=== PATIENT | female | born 1965 | race Caucasian/White ===

== ENCOUNTER 2018-04-06 05:23 | Emergency (ER) | payer MEDICARE ==
[2018-04-06 05:33] VITALS: BP 142/71
[2018-04-06 06:08] LABS: ABSOLUTE LYMPHOCYTES (AUTO) 1.1 10^3/uL (0.5-4.7); ABSOLUTE MONOCYTES (AUTO) 0.4 10^3/uL (0.1-1.4); ABSOLUTE NEUT (AUTO) 4.7 10^3/uL (1.7-8.2); BASOPHILS % (AUTO) 0.8 % (0-2); EOSINOPHILS % (AUTO) 0.3 % (0-6); HEMATOCRIT 34.4 % (36.0-47.0); HEMOGLOBIN 11.7 g/dL (12.0-15.5); LYMPHOCYTES % (AUTO) 17.4 % (13-45); MEAN CORPUSCULAR HEMOGLOBIN 29.4 pg (27.0-33.4); MEAN CORPUSCULAR VOLUME 86 fl (80-97); MONOCYTES % (AUTO) 6.9 % (3-13); PLATELET COUNT 185 10^3/uL (150-450); RED BLOOD COUNT 3.98 10^6/uL (3.72-5.28); RED CELL DISTRIBUTION WIDTH 13.7 % (11.5-14.0); SEGMENTED NEUTROPHILS % (AUTO) 74.6 % (42-78); TOTAL CELLS COUNTED % (AUTO) 100 %; WHITE BLOOD COUNT 6.3 10^3/uL (4.0-10.5)
[2018-04-06 06:36] LABS: ALANINE AMINOTRANSFERASE 44 U/L (9-52); ALBUMIN 4.4 g/dL (3.5-5.0); ALKALINE PHOSPHATASE 151 U/L (38-126); ANION GAP 16 (5-19); ASPARTATE AMINO TRANSFERASE 32 U/L (14-36); BILIRUBIN,DIRECT 0.4 mg/dL (0.0-0.4); BILIRUBIN,TOTAL 0.6 mg/dL (0.2-1.3); BLOOD UREA NITROGEN 16 mg/dL (7-20); CALCIUM 9.4 mg/dL (8.4-10.2); CARBON DIOXIDE 18 mmol/L (22-30); CHLORIDE 112 mmol/L (98-107); GLUCOSE 160 mg/dL (75-110); POTASSIUM 4.2 mmol/L (3.6-5.0); SODIUM 145.5 mmol/L (137-145); TOTAL PROTEIN 7.7 g/dL (6.3-8.2)
[2018-04-06] MEDS ORDERED: LIDOCAINE 1% INJ-PF (10 MG/ML) 30 ML SDV NEB ONE ×2 (07:09→09:27)
--- NOTE | 2018-04-06 08:06 | RADIOLOGY REPORT (SQ) ---
EXAM DESCRIPTION: CHEST SINGLE VIEW COMPLETED DATE/TIME: 04/06/2018 6:43 am REASON FOR STUDY: cough COMPARISON: None. EXAM PARAMETERS: NUMBER OF VIEWS: One view. TECHNIQUE: Single frontal radiographic view of the chest acquired. RADIATION DOSE: NA LIMITATIONS: None. FINDINGS: LUNGS AND PLEURA: No opacities, masses or pneumothorax. No pleural effusion. MEDIASTINUM AND HILAR STRUCTURES: No masses. Contour normal. HEART AND VASCULAR STRUCTURES: Mild cardiomegaly. Normal vasculature. BONES: No acute findings. HARDWARE: None in the chest. OTHER: No other significant finding. IMPRESSION: Mild cardiomegaly without radiographic evidence of an acute cardiopulmonary process. TECHNICAL DOCUMENTATION: JOB ID: [id number] [employer]- All Rights Reserved Reading location - IP/workstation name: [email or web address]
[2018-04-06] MEDS ORDERED: BENZONATATE 100 MG CAPSULE PO ONE ×2 (08:49→09:14)
[2018-04-06] MEDS ORDERED: ALBUTEROL SULFATE HFA (90 MCG/PUFF) 8 GM MDI (1 MDI/ER DISP) IH ONE (09:14)
--- NOTE | 2018-04-06 09:23 | ER Document Report ---
ED General - General Chief Complaint: Cough Stated Complaint: COUGHING,TROUBLE BREATHING Time Seen by Provider: 04/06/18 06:53 - HPI Patient complains to provider of: Cough shortness of breath Notes: Patient coming in for cough staying shortness of breath ongoing for approximately 7 days. Patient has a history of renal transplant recently moved to the area approximately 6 months ago and has herself in a primary care physician. Renal transplant was performed in 2010. Patient is wearing CPAP although coughing throughout the night. States no fevers no chills no nausea vomiting the production of the cough. No recent antibiotics. Patient resting comfortably upon my evaluation of the dry cough in the room. - Related Data Allergies/Adverse Reactions: clopidogrel [From Plavix] Allergy (Verified 04/06/18 05:27) ondansetron [From Zofran] Allergy (Verified 04/06/18 05:27) Penicillins Allergy (Verified 04/06/18 05:27) Past Medical History - Social History Smoking Status: Never Smoker Chew tobacco use (# tins/day): No Frequency of alcohol use: None Drug Abuse: None Family History: Reviewed & Not Pertinent Patient has suicidal ideation: No Patient has homicidal ideation: No - Past Medical History Cardiac Medical History: Reports: Hx Heart Attack Renal/ Medical History: Denies: Hx Peritoneal Dialysis - unused fistula LUE Past Surgical History: Reports: Hx Cardiac Catheterization - stent x13, Hx Vascular Surgery - HD fistula LUE, kidney transplant Review of Systems - Review of Systems Constitutional: No symptoms reported EENT: No symptoms reported Cardiovascular: No symptoms reported Respiratory: Cough Gastrointestinal: No symptoms reported Genitourinary: No symptoms reported Female Genitourinary: No symptoms reported Musculoskeletal: No symptoms reported Skin: No symptoms reported Hematologic/Lymphatic: No symptoms reported Neurological/Psychological: No symptoms reported -: Yes All other systems reviewed and negative Physical Exam - Vital signs Vitals: Temp Pulse Resp BP Pulse Ox 98.7 F 80 20 142/71 H 97 04/06/18 05:27 04/06/18 05:27 04/06/18 05:27 04/06/18 05:27 04/06/18 05:27 Interpretation: Normal - General General appearance: Appears well, Alert - HEENT Head: Normocephalic, Atraumatic Eyes: Normal Pupils: PERRL - Respiratory Respiratory status: No respiratory distress Chest status: Nontender Breath sounds: Nonproductive cough Chest palpation: Normal - Cardiovascular Rhythm: Regular Heart sounds: Normal auscultation Murmur: No - Abdominal Inspection: Normal Distension: No distension Bowel sounds: Normal Tenderness: Nontender Organomegaly: No organomegaly - Back Back: Normal, Nontender - Extremities General upper extremity: Normal inspection, Nontender, Normal color, Normal ROM , Normal temperature General lower extremity: Normal inspection, Nontender, Normal color, Normal ROM , Normal temperature, Normal weight bearing. No: Adryan's sign - Neurological Neuro grossly intact: Yes Cognition: Normal Orientation: AAOx4 Rives Coma Scale Eye Opening: Spontaneous Rives Coma Scale Verbal: Oriented Rives Coma Scale Motor: Obeys Commands Rives Coma Scale Total: 15 Speech: Normal Motor strength normal: LUE, RUE, LLE, RLE Sensory: Normal - Psychological Associated symptoms: Normal affect, Normal mood - Skin Skin Temperature: Warm Skin Moisture: Dry Skin Color: Normal Course - Re-evaluation Re-evalutation: 04/06/18 14:27 The reviewed patient's laboratory studies with her states renal function is at baseline. Bicarb more likely lower because of the patient's renal transplant. Chest x-ray is negative for any acute process. Some relief of coughing with lidocaine. Otherwise lungs clear no signs of CHF no signs of underlying reactive airway disease no signs of infectious process neurologically patient has a viral URI. Did explain to the patient to use Tessalon Perles honey and possibilities and cough drops and [id number] medication. Status patient is afebrile and I feel that the patient will need any antibiotic coverage. Patient will be discharged home to follow-up with her primary care physician patient is return immediately if any of her symptoms change. - Vital Signs Vital signs: Temp Pulse Resp BP Pulse Ox 98.7 F 80 20 142/71 H 97 04/06/18 05:27 04/06/18 05:27 04/06/18 05:27 04/06/18 05:27 04/06/18 05:27 - Laboratory Result Diagrams: 04/06/18 05:55 04/06/18 05:55 Laboratory results interpreted by me: 04/06/18 04/06/18 05:55 05:55 Hgb 11.7 L Hct 34.4 L Sodium 145.5 H Chloride 112 H Carbon Dioxide 18 L Creatinine 1.33 H Est GFR ( Amer) 50 L Est GFR (Non-Af Amer) 42 L Glucose 160 H Alkaline Phosphatase 151 H Discharge - Discharge Clinical Impression: Viral URI with cough Condition: Good Disposition: HOME, SELF-CARE Instructions: Upper Respiratory Illness ([facility]) Additional Instructions: At this time and laboratory studies not show any critical pathology. Unfortunately there is not to be new medications available for cough. I recommend natural honey Her favorite drink throughout the day to help out with cough. I would also recommend using the albuterol inhaler to be given here 2 puffs every 4 hours as needed for shortness of breath and cough. He can try the Tessalon Perles as prescribed. 1 tablet every 8 hours Also prescribed to use a neb was machine. I would recommend using one treatment and still 2 mL's of the lidocaine given an runny nebulizer he can perform this once every 4 hours to have a cough. Return to the ER symptoms worsen follow-up with your primary care physician. Prescriptions: Benzonatate [Tessalon Perle 100 mg Capsule] 100 mg PO Q8HP PRN #30 cap PRN Reason: Nebulizer [Nebulizer Machine] 1 each MC ASDIR PRN #1 kit PRN Reason: Forms: Return to Work
== END 2018-04-06 09:52 | disposition home or self-care (01) ==
LOC: ER 05:23
DX: J06.9 Acute upper respiratory infection, unspecified (principal); R06.00 Dyspnea, unspecified; Z88.0 Allergy status to penicillin; I25.2 Old myocardial infarction
CPT/HCPCS: 94640; 99284; 36415; 85025; 80053; 71045; A9270; J3490 ×2

== ENCOUNTER → 2018-07-14 | Outpatient (CLI) | payer MEDICARE ==
[2018-07-14 13:09] LABS: ABSOLUTE BASOPHILS # (AUTO) 0.1 10^3/uL (0.0-0.2); ABSOLUTE EOSINOPHILS # (AUTO) 0.1 10^3/uL (0.0-0.6); ABSOLUTE LYMPHOCYTES (AUTO) 1.5 10^3/uL (0.5-4.7); ABSOLUTE MONOCYTES (AUTO) 0.7 10^3/uL (0.1-1.4); ABSOLUTE NEUT (AUTO) 3.3 10^3/uL (1.7-8.2); EOSINOPHILS % (AUTO) 1.5 % (0-6); HEMATOCRIT 33.3 % (36.0-47.0); HEMOGLOBIN 11.5 g/dL (12.0-15.5); LYMPHOCYTES % (AUTO) 26.7 % (13-45); MEAN CORPUSCULAR HEMOGLOBIN 30.1 pg (27.0-33.4); MEAN CORPUSCULAR HGB CONC 34.6 g/dL (32.0-36.0); MEAN CORPUSCULAR VOLUME 87 fl (80-97); MONOCYTES % (AUTO) 12.3 % (3-13); PLATELET COUNT 203 10^3/uL (150-450); RED BLOOD COUNT 3.83 10^6/uL (3.72-5.28); RED CELL DISTRIBUTION WIDTH 13.9 % (11.5-14.0); SEGMENTED NEUTROPHILS % (AUTO) 58.5 % (42-78); TOTAL CELLS COUNTED % (AUTO) 100 %; WHITE BLOOD COUNT 5.7 10^3/uL (4.0-10.5)
[2018-07-14 13:13] LABS: APPEARANCE,URINE CLOUDY; BILIRUBIN,URINE NEGATIVE (NEGATIVE); GLUCOSE, URINE NEGATIVE (NEGATIVE); KETONES,URINE NEGATIVE (NEGATIVE); LEUKOCYTE ESTERASE,URINE MODERATE (NEGATIVE); NITRITE,URINE NEGATIVE (NEGATIVE); PROTEIN,URINE 100 mg/dL (NEGATIVE); URINE SPECIFIC GRAVITY 1.012; UROBILINOGEN,URINE NEGATIVE mg/dL (<2.0)
[2018-07-14 13:14] LABS: COLOR,URINE YELLOW
[2018-07-14 13:31] LABS: ALBUMIN 4.2 g/dL (3.5-5.0); ANION GAP 14 (5-19); BLOOD UREA NITROGEN 31 mg/dL (7-20); CALCIUM 9.7 mg/dL (8.4-10.2); CARBON DIOXIDE 20 mmol/L (22-30); CHLORIDE 111 mmol/L (98-107); GLUCOSE 132 mg/dL (75-110); PHOSPHORUS 4.7 mg/dL (2.5-4.5); POTASSIUM 4.6 mmol/L (3.6-5.0); SODIUM 145.1 mmol/L (137-145)
[2018-07-14 13:44] LABS: UR PRO/CREAT RATIO RESULT 2.8 mg/mg (0.0-0.2); URINE CREATININE 55.3 mg/dL (15-278); URINE PROTEIN 157.6 mg/dL (<12)
== END ==
LOC: OD 12:28
PROVIDERS: ATTEND Internal Medicine Nephrology
DX: E11.22 Type 2 diabetes mellitus with diabetic chronic kidney disease (principal); N18.3 Chronic kidney disease, stage 3 (moderate); Q87.81 Alport syndrome
CPT/HCPCS: 36415; 80048; 80158; 81001; 82040; 82306; 82570; 83970; 84100; 84156; 85025

== ENCOUNTER → 2018-09-11 | Outpatient (CLI) | payer MEDICARE ==
[2018-09-11 13:04] LABS: ABSOLUTE BASOPHILS # (AUTO) 0.1 10^3/uL (0.0-0.2); ABSOLUTE EOSINOPHILS # (AUTO) 0.1 10^3/uL (0.0-0.6); ABSOLUTE LYMPHOCYTES (AUTO) 1.6 10^3/uL (0.5-4.7); ABSOLUTE MONOCYTES (AUTO) 0.8 10^3/uL (0.1-1.4); ABSOLUTE NEUT (AUTO) 4.3 10^3/uL (1.7-8.2); BASOPHILS % (AUTO) 0.8 % (0-2); EOSINOPHILS % (AUTO) 1.5 % (0-6); HEMATOCRIT 33.9 % (36.0-47.0); HEMOGLOBIN 11.7 g/dL (12.0-15.5); LYMPHOCYTES % (AUTO) 23.4 % (13-45); MEAN CORPUSCULAR HEMOGLOBIN 30.4 pg (27.0-33.4); MEAN CORPUSCULAR HGB CONC 34.4 g/dL (32.0-36.0); MEAN CORPUSCULAR VOLUME 88 fl (80-97); MONOCYTES % (AUTO) 11.7 % (3-13); PLATELET COUNT 214 10^3/uL (150-450); RED BLOOD COUNT 3.84 10^6/uL (3.72-5.28); SEGMENTED NEUTROPHILS % (AUTO) 62.6 % (42-78); TOTAL CELLS COUNTED % (AUTO) 100 %; WHITE BLOOD COUNT 6.9 10^3/uL (4.0-10.5)
[2018-09-11 13:12] LABS: APPEARANCE,URINE CLEAR; BILIRUBIN,URINE NEGATIVE (NEGATIVE); COLOR,URINE YELLOW; GLUCOSE, URINE NEGATIVE (NEGATIVE); KETONES,URINE NEGATIVE (NEGATIVE); LEUKOCYTE ESTERASE,URINE NEGATIVE (NEGATIVE); NITRITE,URINE NEGATIVE (NEGATIVE); PROTEIN,URINE >=500 mg/dL (NEGATIVE); URINE SPECIFIC GRAVITY 1.011; UROBILINOGEN,URINE NEGATIVE mg/dL (<2.0)
[2018-09-11 13:24] LABS: ANION GAP 10 (5-19); BLOOD UREA NITROGEN 32 mg/dL (7-20); CALCIUM 9.9 mg/dL (8.4-10.2); CARBON DIOXIDE 20 mmol/L (22-30); CHLORIDE 112 mmol/L (98-107); GLUCOSE 151 mg/dL (75-110); PHOSPHORUS 4.9 mg/dL (2.5-4.5); POTASSIUM 4.7 mmol/L (3.6-5.0); SODIUM 141.9 mmol/L (137-145)
[2018-09-11 13:33] LABS: URINE CREATININE 58.6 mg/dL (15-278)
[2018-09-11 13:51] LABS: UR PRO/CREAT RATIO RESULT 4.3 mg/mg (0.0-0.2); URINE PROTEIN 251.2 mg/dL (<12)
== END ==
LOC: OD 12:31
PROVIDERS: ATTEND Internal Medicine Nephrology
DX: N17.9 Acute kidney failure, unspecified (principal); E11.9 Type 2 diabetes mellitus without complications; R80.9 Proteinuria, unspecified
CPT/HCPCS: 36415; 80048; 81001; 82306; 82570; 83970; 84100; 84156; 85025

== ENCOUNTER 2018-09-23 17:39 | Emergency (ER) | payer MEDICARE ==
--- NOTE | 2018-09-23 19:09 | ER Document Report ---
ED Medical Screen (RME) - General Chief Complaint: Chest Pain Stated Complaint: CHEST PAIN Time Seen by Provider: 09/23/18 19:09 Primary Care Provider: NANCY ZAMORA MD [Primary Care Provider] - Follow up as needed Notes: This is a 53-year-old female patient, history of renal transplant, on immunosuppressive therapy. Comes in with chest pain and shortness of breath. Symptoms have been on and off for approximately 2 weeks. Took a few nitroglycerin tablets at home. 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 Patient has had multiple stents. Strong family history of heart disease. 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 Former smoker. Multiple heart attacks. I have greeted and performed a rapid initial assessment of this patient. A c omprehensive ED assessment and evaluation of the patient, analysis of test results and completion of the medical decision making process will be conducted by additional ED providers. TRAVEL OUTSIDE OF THE [place] IN LAST 30 DAYS: No - Related Data Allergies/Adverse Reactions: clopidogrel [From Plavix] Allergy (Verified 04/06/18 05:27) ondansetron [From Zofran] Allergy (Verified 04/06/18 05:27) Penicillins Allergy (Verified 04/06/18 05:27) Past Medical History - Past Medical History Cardiac Medical History: Reports: Hx Heart Attack Renal/ Medical History: Denies: Hx Peritoneal Dialysis - unused fistula LUE Past Surgical History: Reports: Hx Cardiac Catheterization - stent x13, Hx Vascular Surgery - HD fistula LUE, kidney transplant Physical Exam - Vital signs Vitals: Temp Pulse Resp BP Pulse Ox 98.5 F 68 16 149/65 H 99 09/23/18 18:00 09/23/18 18:00 09/23/18 18:00 09/23/18 18:00 09/23/18 18:00 Course - Vital Signs Vital signs: Temp Pulse Resp BP Pulse Ox 98.5 F 68 16 149/65 H 99 09/23/18 18:00 09/23/18 18:00 09/23/18 18:00 09/23/18 18:00 09/23/18 18:00 Doctor's Discharge - Discharge Referrals: NANCY ZAMORA MD [Primary Care Provider] - Follow up as needed
[2018-09-23] MEDS ORDERED: ALBUTEROL SULFATE 0.083% NEB 2.5 MG/3 ML AMPUL NEB ONE (19:22)
[2018-09-23 19:47] LABS: ABSOLUTE BASOPHILS # (AUTO) 0.1 10^3/uL (0.0-0.2); ABSOLUTE EOSINOPHILS # (AUTO) 0.2 10^3/uL (0.0-0.6); ABSOLUTE MONOCYTES (AUTO) 0.7 10^3/uL (0.1-1.4); ABSOLUTE NEUT (AUTO) 2.6 10^3/uL (1.7-8.2); EOSINOPHILS % (AUTO) 3.3 % (0-6); HEMATOCRIT 33.5 % (36.0-47.0); HEMOGLOBIN 11.7 g/dL (12.0-15.5); LYMPHOCYTES % (AUTO) 36.7 % (13-45); MEAN CORPUSCULAR HEMOGLOBIN 30.9 pg (27.0-33.4); MEAN CORPUSCULAR VOLUME 89 fl (80-97); MONOCYTES % (AUTO) 12.4 % (3-13); PLATELET COUNT 218 10^3/uL (150-450); RED BLOOD COUNT 3.78 10^6/uL (3.72-5.28); RED CELL DISTRIBUTION WIDTH 13.5 % (11.5-14.0); SEGMENTED NEUTROPHILS % (AUTO) 46.6 % (42-78); TOTAL CELLS COUNTED % (AUTO) 100 %; WHITE BLOOD COUNT 5.5 10^3/uL (4.0-10.5)
[2018-09-23 20:04] LABS: ALANINE AMINOTRANSFERASE 47 U/L (9-52); ALBUMIN 4.5 g/dL (3.5-5.0); ALKALINE PHOSPHATASE 177 U/L (38-126); ANION GAP 11 (5-19); ASPARTATE AMINO TRANSFERASE 40 U/L (14-36); BILIRUBIN,DIRECT 0.4 mg/dL (0.0-0.4); BILIRUBIN,TOTAL 0.5 mg/dL (0.2-1.3); BLOOD UREA NITROGEN 28 mg/dL (7-20); CALCIUM 9.6 mg/dL (8.4-10.2); CARBON DIOXIDE 24 mmol/L (22-30); CHLORIDE 109 mmol/L (98-107); CREATINE KINASE 52 U/L (30-135); GLUCOSE 146 mg/dL (75-110); POTASSIUM 4.4 mmol/L (3.6-5.0); SODIUM 143.9 mmol/L (137-145); TOTAL PROTEIN 7.7 g/dL (6.3-8.2)
--- NOTE | 2018-09-23 20:07 | RADIOLOGY REPORT (SQ) ---
EXAM DESCRIPTION: XR CHEST 2 VIEWS COMPLETED DATE/TME: 09/23/2018 19:20 CLINICAL HISTORY: 53 years, Female, sob, cough COMPARISON: 04/06/2018 chest NUMBER OF VIEWS: 2 TECHNIQUE: Frontal and lateral views of the chest LIMITATIONS: None. FINDINGS: Heart size at the upper limits of normal. Mild atheromatous change thoracic aorta. Osteopenia. Lungs are clear. No pneumothorax IMPRESSION: No acute cardiopulmonary process copyright 2010 [facility]- All Rights Reserved
[2018-09-23 20:16] LABS: CREATINE KINASE MB 0.31 ng/mL (<4.55); NT PRO BNP 512 pg/mL (5-900)
[2018-09-23 20:21] LABS: TROPONIN I < 0.012 ng/mL
--- NOTE | 2018-09-23 21:46 | EKG REPORT ---
SEVERITY:- ABNORMAL ECG - SINUS RHYTHM PROBABLE LEFT ATRIAL ABNORMALITY CONSIDER ANTEROSEPTAL INFARCT : Confirmed by: David Siegel 23-Sep-2018 21:46:42
--- NOTE | 2018-09-23 21:49 | ER Document Report ---
ED Cardiac - General Chief Complaint: Chest Pain Stated Complaint: CHEST PAIN Time Seen by Provider: 09/23/18 21:49 Primary Care Provider: NANCY ZAMORA MD [ACTIVE STAFF] - Follow up as needed Mode of Arrival: Ambulatory Information source: Patient Notes: HISTORY OF PRESENT ILLNESS: Patient is a 53-year-old female with a past medical history of coronary artery disease status post bypass status post multiple stents who presents with feeling weak for the past 1-2 weeks and then an episode of chest pain earlier today that completely resolved with one nitroglycerin. Location: Middle of the chest Onset: Sudden Alleviation: Nitroglycerin Provocation: Nothing Quality: Pressure Radiation: None Severity: Moderate, currently resolved Timing: Episodic History of CAD: Yes Associated symptoms: Denies shortness of breath, no diaphoresis, no recent fevers or chills, no cough or congestion REVIEW OF SYSTEMS: CONSTITUTIONAL : Denies fever or chills, no sweats. Denies recent illness. EENT: Denies eye, ear, throat, or mouth pain or symptoms. Denies nasal or sinus congestion. CARDIOVASCULAR: Positive for chest pain. Denies swelling of the legs. RESPIRATORY: Denies cough, cold, or chest congestion. Denies shortness of breath or difficulty breathing. Denies wheezing. GASTROINTESTINAL: Denies abdominal pain. Denies nausea, vomiting, or diarrhea. Denies constipation. GENITOURINARY: Denies difficulty urinating, painful urination, burning, frequency, or blood in urine. FEMALE GENITOURINARY: Denies vaginal bleeding, abnormal or irregular periods. MUSCULOSKELETAL: Denies neck or back pain or joint pain or swelling. SKIN: Denies rash or skin lesions. HEMATOLOGIC : Denies easy bruising or bleeding. LYMPHATIC: Denies swollen, enlarged glands. NEUROLOGICAL: Denies altered mental status or loss of consciousness. Denies headache. Denies weakness or paralysis or loss of use of either side. Denies problems with gait or speech. Denies sensory or motor loss. PSYCHIATRIC: Denies anxiety or stress or depression. All other systems reviewed and negative. PHYSICAL EXAMINATION: GENERAL: Well-appearing, well-nourished and in no acute distress. HEAD: Atraumatic, normocephalic. No scalp deformity, depression, or crepitance. EYES: Pupils are 3 mm and equal/round/reactive to light, extraocular movements intact, sclera anicteric, conjunctiva are normal. ENT: Nares patent bilaterally, oropharynx. Moist mucous membranes. No tonsil hypertrophy. NECK: Normal range of motion, supple without lymphadenopathy. LUNGS: Breath sounds present, equal, and clear to auscultation bilaterally. No wheezes, rales, or rhonchi. HEART: Regular rate and rhythm without murmurs, rubs, or gallops. 2+ peripheral pulses. Normal capillary refill. ABDOMEN: Soft, nontender, nondistended. Normoactive bowel sounds. No guarding, no rebound. No masses appreciated. BACK: Normal contour, no midline tenderness. Rectal exam deferred. GENITAL/PELVIC: Deferred. EXTREMITIES: Normal range of motion, no pitting or edema. No cyanosis. NEUROLOGICAL: No focal neurological deficits. Moves all extremities spontaneously and on command. PSYCH: Normal mood, normal affect. No suicidal thoughts/ideations. No homocidal thoughts/ideations. No hallucinations. SKIN: Warm, dry, normal turgor, no rashes or lesions noted. ASSESSMENT AND PLAN: This patient is a 53-year-old female who presents with chest pain that completely resolved after one sublingual nitroglycerin in the setting of having a history of coronary disease. 1. Will obtain labs, cardiac enzymes, chest x-ray, give full aspirin, and admit to the hospital. TRAVEL OUTSIDE OF THE [place] IN LAST 30 DAYS: No - Related Data Allergies/Adverse Reactions: clopidogrel [From Plavix] Allergy (Verified 04/06/18 05:27) ondansetron [From Zofran] Allergy (Verified 04/06/18 05:27) Penicillins Allergy (Verified 04/06/18 05:27) Past Medical History - General Information source: Patient - Social History Smoking Status: Former Smoker Chew tobacco use (# tins/day): No Frequency of alcohol use: None Drug Abuse: None Lives with: Family Family History: Reviewed & Not Pertinent Patient has suicidal ideation: No Patient has homicidal ideation: No - Past Medical History Cardiac Medical History: Reports: Hx Heart Attack, Hx Hypercholesterolemia, Hx Hypertension Pulmonary Medical History: Reports: Hx COPD EENT Medical History: Reports: None Neurological Medical History: Reports: None Endocrine Medical History: Reports: Hx Diabetes Mellitus Type 2 Renal/ Medical History: Reports: Hx End Stage Renal Disease. 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 Patient has info rmed me that she would like to leave and not be admitted to the hospital. I have informed the patient that my recommendation is for her to be admitted for a proper cardiac rule out. She again reports that she would like to be discharged. I told the patient that she is free to leave AGAINST MEDICAL ADVICE so long as she knows the risks associated with this, including: , continued chest pain, weakness, and heart attack at home. Patient voices understanding and agrees that she will come back immediately if she has another episode of chest pain. - Vital Signs Vital signs: Temp Pulse Resp BP Pulse Ox 98.5 F 68 19 156/68 H 98 09/23/18 18:00 09/23/18 18:00 09/23/18 23:01 09/23/18 23:01 09/23/18 23:01 - Laboratory Result Diagrams: 09/23/18 19:36 09/23/18 19:36 Laboratory results interpreted by me: 09/23/18 09/23/18 19:36 19:36 Hgb 11.7 L Hct 33.5 L Chloride 109 H BUN 28 H Creatinine 1.55 H Est GFR ( Amer) 42 L Est GFR (Non-Af Amer) 35 L Glucose 146 H AST 40 H Alkaline Phosphatase 177 H - Diagnostic Test Radiology reviewed: Image reviewed, Reports reviewed - EKG Interpretation by Me EKG shows normal: Sinus rhythm Rate: Normal Rhythm: NSR [place]/QRS: No: Right axis deviation, Left axis deviation, RBBB, LBBB, IVCD, LAHB/LAFB, LPHB/LPFB, Bifasicular block Voltage: No: Increased voltage, Consistant with LVH, Decreased voltage, Throughout, Limb leads P Waves: No: LYLE, LAE, Absent, AV Dissociation, Other Heart block present: No: 1st Degree, Mobitz 1, Mobitz 2, CHB (3rd degree block) When compared to previous EKG there are: No significant change Discharge - Discharge Clinical Impression: Chest pain Qualifiers: Chest pain type: other chest pain Qualified Code(s): R07.89 - Other chest pain; R07.8 - Other chest pain Condition: Stable Disposition: AGAINST MEDICAL ADVICE Instructions: Angina Episode ([facility]) Additional Instructions: You have decided to leave AGAINST MEDICAL ADVICE. This puts your medical well-being, and also your life, at risk considering you had reversible chest pain with nitroglycerin given a history of multiple cardiac procedures and stents. Please return to the hospital immediately if you experience recurrent pain or have any other concerning symptoms. Please follow-up with your cardio logist as soon as you can. Referrals: NANCY ZAMORA MD [ACTIVE STAFF] - Follow up as needed Print Language: Surinamese
[2018-09-23 23:30] VITALS: BP 156/68
== END 2018-09-23 23:34 | disposition left against medical advice (07) ==
LOC: ER 17:39
DX: R07.89 Other chest pain (principal); I25.10 Atherosclerotic heart disease of native coronary artery without angina pectoris; I25.2 Old myocardial infarction; I10 Essential (primary) hypertension; J44.9 Chronic obstructive pulmonary disease, unspecified; E11.9 Type 2 diabetes mellitus without complications; Z95.1 Presence of aortocoronary bypass graft; Z95.5 Presence of coronary angioplasty implant and graft; Z88.8 Allergy status to other drugs, medicaments and biological substances; Z88.0 Allergy status to penicillin; Z87.891 Personal history of nicotine dependence; Z94.0 Kidney transplant status
CPT/HCPCS: 93005; 94640; 99285; 36415; 82553; 82550; 85025; 80053; 84484; 83880; 71046; 93010; A9270

== ENCOUNTER 2018-10-27 03:14 | Emergency (ER) | payer MEDICARE ==
[2018-10-27] MEDS ORDERED: ASPIRIN 81 MG TABLET, CHEWABLE PO ONE (04:44)
[2018-10-27 04:56] LABS: INTERNATIONAL RATION (INR) 1.03
[2018-10-27 05:03] LABS: ABSOLUTE BASOPHILS # (AUTO) 0.1 10^3/uL (0.0-0.2); ABSOLUTE EOSINOPHILS # (AUTO) 0.1 10^3/uL (0.0-0.6); ABSOLUTE LYMPHOCYTES (AUTO) 1.4 10^3/uL (0.5-4.7); ABSOLUTE MONOCYTES (AUTO) 0.9 10^3/uL (0.1-1.4); ABSOLUTE NEUT (AUTO) 4.9 10^3/uL (1.7-8.2); BASOPHILS % (AUTO) 1.4 % (0-2); EOSINOPHILS % (AUTO) 1.8 % (0-6); HEMATOCRIT 31.2 % (36.0-47.0); HEMOGLOBIN 11.1 g/dL (12.0-15.5); LYMPHOCYTES % (AUTO) 19.1 % (13-45); MEAN CORPUSCULAR HGB CONC 35.5 g/dL (32.0-36.0); MEAN CORPUSCULAR VOLUME 87 fl (80-97); MONOCYTES % (AUTO) 11.9 % (3-13); PLATELET COUNT 245 10^3/uL (150-450); RED BLOOD COUNT 3.57 10^6/uL (3.72-5.28); RED CELL DISTRIBUTION WIDTH 13.3 % (11.5-14.0); SEGMENTED NEUTROPHILS % (AUTO) 65.8 % (42-78); TOTAL CELLS COUNTED % (AUTO) 100 %; WHITE BLOOD COUNT 7.4 10^3/uL (4.0-10.5)
[2018-10-27 05:10] LABS: ALANINE AMINOTRANSFERASE 17 U/L (9-52); ALBUMIN 4.3 g/dL (3.5-5.0); ALKALINE PHOSPHATASE 122 U/L (38-126); ANION GAP 15 (5-19); ASPARTATE AMINO TRANSFERASE 23 U/L (14-36); BILIRUBIN,DIRECT 0.5 mg/dL (0.0-0.4); BILIRUBIN,TOTAL 0.6 mg/dL (0.2-1.3); BLOOD UREA NITROGEN 28 mg/dL (7-20); CALCIUM 9.2 mg/dL (8.4-10.2); CARBON DIOXIDE 19 mmol/L (22-30); CHLORIDE 106 mmol/L (98-107); CREATINE KINASE 67 U/L (30-135); GLUCOSE 200 mg/dL (75-110); POTASSIUM 4.7 mmol/L (3.6-5.0); SODIUM 139.7 mmol/L (137-145); TOTAL PROTEIN 7.3 g/dL (6.3-8.2)
[2018-10-27 05:32] LABS: CREATINE KINASE MB 0.39 ng/mL (<4.55); TROPONIN I < 0.012 ng/mL
--- NOTE | 2018-10-27 05:36 | RADIOLOGY REPORT (SQ) ---
EXAM DESCRIPTION: X-ray single view chest. CLINICAL HISTORY: 53 years Female, CP COMPARISON: 04/06/2018 TECHNIQUE: Single portable view of the chest performed on 10/27/2018 at 5:14 AM FINDINGS: The lungs are well expanded and are clear. There is no evidence of a pneumothorax. The cardiac silhouette is normal in size and configuration. The mediastinal contours are normal. No acute osseous abnormality is identified. No focal soft tissue abnormalities are seen. Lines and tubes: None. IMPRESSION: No evidence of acute intrathoracic disease.
--- NOTE | 2018-10-27 05:56 | ER Document Report ---
ED General - General Chief Complaint: Chest Pain Stated Complaint: CHEST PAIN Time Seen by Provider: 10/27/18 04:44 Primary Care Provider: YOSEF COLE MD [Primary Care Provider] - Follow up as needed Notes: Patient is a 53-year-old female coronary artery disease, hyperlipidemia, hypertension, diabetes presents to the emergency department for generalized chest pain. Patient states a burning sensation and also sharp stabbing sensation woke her up from sleep. States she took 2 of her at home sublingual nitro and also 324 mg of aspirin. States the ambulance gave her 3 more sublingual nitroglycerin and she is currently chest pain-free. Patient states she has had 13 cardiac stents placed as well as a kidney transplant. Patient states her hydroelectric mechanic is Dr. Foss her last stress test and cardiac cath were in November 2017 and they were both done in [place] prior to her moving to [place]. Past medical history: Hypertension, hyperlipidemia, diabetes, coronary artery disease with stent placement, kidney transplant Medications: Carvedilol, amlodipine, aspirin, glipizide, Valium, nitroglycerin Allergies: Plavix, penicillin TRAVEL OUTSIDE OF THE [place] IN LAST 30 DAYS: No - Related Data Allergies/Adverse Reactions: clopidogrel [From Plavix] Allergy (Verified 04/06/18 05:27) ondansetron [From Zofran] Allergy (Verified 04/06/18 05:27) Penicillins Allergy (Verified 04/06/18 05:27) Past Medical History - General Information source: Patient - Social History Smoking Status: Former Smoker Family History: Reviewed & Not Pertinent Patient has suicidal ideation: No Patient has homicidal ideation: No - Past Medical History Cardiac Medical History: Reports: Hx Heart Attack, Hx Hypercholesterolemia, Hx Hypertension Pulmonary Medical History: Reports: Hx COPD Endocrine Medical History: Reports: Hx Diabetes Mellitus Type 2 Renal/ Medical History: Reports: Hx End Stage Renal Disease. 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, Hx Vascular Surgery - HD fistula LUE, kidney transplant - Immunizations Immunizations up to date: Yes Hx Diphtheria, Pertussis, Tetanus Vaccination: Yes Review of Systems - Review of Systems Constitutional: No symptoms reported EENT: No symptoms reported Cardiovascular: See HPI Respiratory: No symptoms reported Gastrointestinal: No symptoms reported Genitourinary: No symptoms reported Female Genitourinary: No symptoms reported Musculoskeletal: No symptoms reported Skin: No symptoms reported Hematologic/Lymphatic: No symptoms reported Neurological/Psychological: No symptoms reported Physical Exam - Vital signs Vitals: Temp 98.7 F 10/27/18 03:36 - Notes Notes: GENERAL: Alert, interacts well. No acute distress. HEAD: Normocephalic, atraumatic. EYES: Pupils equal, round, and reactive to light. Extraocular movements intact. ENT: Oral mucosa moist, tongue midline. NECK: Full range of motion. Supple. Trachea midline. LUNGS: Clear to auscultation bilaterally, no wheezes, rales, or rhonchi. No res piratory distress. HEART: Regular rate and rhythm. No murmur ABDOMEN: Soft, non-tender. Non-distended. Bowel sounds present in all 4 quadrants. EXTREMITIES: Moves all 4 extremities spontaneously. No edema, normal radial and dorsalis pedis pulses bilaterally. No cyanosis. BACK: no cervical, thoracic, lumbar midline tenderness. No saddle anesthesia, normal distal neurovascular exam. NEUROLOGICAL: Alert and oriented x3. Normal speech. cranial nerves II through XII grossly intact PSYCH: Normal affect, normal mood. SKIN: Warm, dry, normal turgor. No rashes or lesions noted. Course - Re-evaluation Re-evalutation: Patient's EKG shows a sinus rhythm rate of 83, QTc 475, no ST segment elevations or depressions noted. It is unchanged from previous visits EKG. Patient's initial troponin is negative although her heart score is over 4 I do feel as though she should be admitted to the hospital. Patient voices that she would like to leave. Discussed with her she will have to sign AGAINST MEDICAL ADVICE paperwork. Patient states she will sign AGAINST MEDICAL ADVICE paperwork and will follow up with her hydroelectric mechanic in the morning. Discussed at length with patient risks versus benefits of staying in the hospital. I told the patient that she may if she leaves the emergency room. Patient voices understanding and is still willing to sign AGAINST MEDICAL ADVICE paperwork. - Vital Signs Vital signs: Temp Pulse Resp BP Pulse Ox 98.7 F 24 H 132/49 H 97 10/27/18 03:36 10/27/18 05:00 10/27/18 04:01 10/27/18 05:00 - Laboratory Result Diagrams: 10/27/18 03:30 10/27/18 03:30 Laboratory results interpreted by me: 10/27/18 10/27/18 03:30 03:30 RBC 3.57 L Hgb 11.1 L Hct 31.2 L Carbon Dioxide 19 L BUN 28 H Creatinine 1.74 H Est GFR ( Amer) 37 L Est GFR (Non-Af Amer) 30 L Glucose 200 H Direct Bilirubin 0.5 H Discharge - Discharge Clinical Impression: Left against medical advice Additional Instructions: As we discussed you are leaving the emergency department AGAINST MEDICAL ADVICE. This means that you may leave the emergency room and . Please make sure you follow-up with your hydroelectric mechanic in immediately return to the emergency room should you develop chest pain. Please also return to the emergency room for any other concerning symptoms. Referrals: YOSEF COLE MD [Primary Care Provider] - Follow up as needed
[2018-10-27 06:09] VITALS: BP 154/91
--- NOTE | 2018-10-27 07:04 | EKG REPORT ---
SEVERITY:- BORDERLINE ECG - SINUS RHYTHM PROBABLE LEFT ATRIAL ABNORMALITY : Confirmed by: Inder yLles MD 27-Oct-2018 07:03:20
== END 2018-10-27 06:13 | disposition left against medical advice (07) ==
LOC: ER 03:14
DX: R07.9 Chest pain, unspecified (principal); Z53.20 Procedure and treatment not carried out because of patient's decision for unspecified reasons; I25.10 Atherosclerotic heart disease of native coronary artery without angina pectoris; I10 Essential (primary) hypertension; I25.2 Old myocardial infarction; J44.9 Chronic obstructive pulmonary disease, unspecified; E11.9 Type 2 diabetes mellitus without complications; Z95.5 Presence of coronary angioplasty implant and graft; Z94.0 Kidney transplant status; Z79.82 Long term (current) use of aspirin; Z79.84 Long term (current) use of oral hypoglycemic drugs; Z79.899 Other long term (current) drug therapy; Z88.8 Allergy status to other drugs, medicaments and biological substances; Z88.0 Allergy status to penicillin; Z87.891 Personal history of nicotine dependence
CPT/HCPCS: 36415; 71045; 80053; 82550; 82553; 84484; 85025; 85610; 93005; 93010; 99285

== ENCOUNTER → 2019-01-05 | Outpatient (CLI) | payer MEDICARE ==
[2019-01-05 13:12] LABS: ABSOLUTE BASOPHILS # (AUTO) 0.1 10^3/uL (0.0-0.2); ABSOLUTE EOSINOPHILS # (AUTO) 0.1 10^3/uL (0.0-0.6); ABSOLUTE LYMPHOCYTES (AUTO) 1.5 10^3/uL (0.5-4.7); ABSOLUTE MONOCYTES (AUTO) 0.7 10^3/uL (0.1-1.4); ABSOLUTE NEUT (AUTO) 5.2 10^3/uL (1.7-8.2); BASOPHILS % (AUTO) 0.9 % (0-2); EOSINOPHILS % (AUTO) 1.8 % (0-6); HEMATOCRIT 33.7 % (36.0-47.0); HEMOGLOBIN 11.4 g/dL (12.0-15.5); MEAN CORPUSCULAR HEMOGLOBIN 29.3 pg (27.0-33.4); MEAN CORPUSCULAR HGB CONC 33.7 g/dL (32.0-36.0); MEAN CORPUSCULAR VOLUME 87 fl (80-97); MONOCYTES % (AUTO) 9.1 % (3-13); PLATELET COUNT 213 10^3/uL (150-450); RED BLOOD COUNT 3.88 10^6/uL (3.72-5.28); RED CELL DISTRIBUTION WIDTH 14.1 % (11.5-14.0); SEGMENTED NEUTROPHILS % (AUTO) 68.2 % (42-78); TOTAL CELLS COUNTED % (AUTO) 100 %; WHITE BLOOD COUNT 7.6 10^3/uL (4.0-10.5)
[2019-01-05 13:13] LABS: APPEARANCE,URINE CLEAR; BILIRUBIN,URINE NEGATIVE (NEGATIVE); COLOR,URINE YELLOW; GLUCOSE, URINE NEGATIVE (NEGATIVE); KETONES,URINE NEGATIVE (NEGATIVE); LEUKOCYTE ESTERASE,URINE NEGATIVE (NEGATIVE); NITRITE,URINE NEGATIVE (NEGATIVE); PROTEIN,URINE >=500 mg/dL (NEGATIVE); UROBILINOGEN,URINE NEGATIVE mg/dL (<2.0)
[2019-01-05 13:33] LABS: ALBUMIN 4.3 g/dL (3.5-5.0); ANION GAP 14 (5-19); BLOOD UREA NITROGEN 25 mg/dL (7-20); CALCIUM 9.5 mg/dL (8.4-10.2); CARBON DIOXIDE 20 mmol/L (22-30); CHLORIDE 109 mmol/L (98-107); GLUCOSE 155 mg/dL (75-110); PHOSPHORUS 4.4 mg/dL (2.5-4.5); POTASSIUM 3.9 mmol/L (3.6-5.0); SODIUM 143.3 mmol/L (137-145)
[2019-01-05 13:39] LABS: URINE CREATININE 67.5 mg/dL (15-278)
[2019-01-05 13:51] LABS: UR PRO/CREAT RATIO RESULT 4.5 mg/mg (0.0-0.2); URINE PROTEIN 305.7 mg/dL (<12)
== END ==
LOC: OD 12:31
PROVIDERS: ATTEND Internal Medicine Nephrology
DX: E11.22 Type 2 diabetes mellitus with diabetic chronic kidney disease (principal); I12.9 Hypertensive chronic kidney disease with stage 1 through stage 4 chronic kidney disease, or unspecified chronic kidney disease; N18.3 Chronic kidney disease, stage 3 (moderate); R80.9 Proteinuria, unspecified; E55.9 Vitamin D deficiency, unspecified
CPT/HCPCS: 36415; 80069; 80158; 81001; 82306; 82570; 83970; 84156; 85025

== ENCOUNTER → 2019-01-09 | Outpatient (CLI) | payer MEDICARE | LOC: OD 13:12 | PROVIDERS: ATTEND Internal Medicine Nephrology | DX: Z94.0 Kidney transplant status (principal) | CPT/HCPCS: 36415; 80158 ==

== ENCOUNTER → 2019-01-21 | Outpatient (CLI) | payer MEDICARE ==
[2019-01-21 13:08] LABS: ANION GAP 11 (5-19); BLOOD UREA NITROGEN 25 mg/dL (7-20); CALCIUM 9.9 mg/dL (8.4-10.2); CARBON DIOXIDE 24 mmol/L (22-30); CHLORIDE 109 mmol/L (98-107); GLUCOSE 127 mg/dL (75-110); POTASSIUM 4.7 mmol/L (3.6-5.0); SODIUM 143.6 mmol/L (137-145)
== END ==
LOC: OD 11:36
PROVIDERS: ATTEND Internal Medicine Nephrology
DX: Z94.0 Kidney transplant status (principal); I12.9 Hypertensive chronic kidney disease with stage 1 through stage 4 chronic kidney disease, or unspecified chronic kidney disease; E11.22 Type 2 diabetes mellitus with diabetic chronic kidney disease; N18.3 Chronic kidney disease, stage 3 (moderate); R60.9 Edema, unspecified; R80.9 Proteinuria, unspecified
CPT/HCPCS: 36415; 80048

== ENCOUNTER → 2019-04-27 | Outpatient (CLI) | payer MEDICARE ==
[2019-04-27 12:05] LABS: ALBUMIN 4.3 g/dL (3.5-5.0); ANION GAP 10 (5-19); BLOOD UREA NITROGEN 19 mg/dL (7-20); CALCIUM 9.6 mg/dL (8.4-10.2); CARBON DIOXIDE 23 mmol/L (22-30); CHLORIDE 110 mmol/L (98-107); GLUCOSE 161 mg/dL (75-110); POTASSIUM 3.9 mmol/L (3.6-5.0)
[2019-04-27 12:16] LABS: UR PRO/CREAT RATIO RESULT 2.9 mg/mg (0.0-0.2); URINE CREATININE 54.3 mg/dL (15-278); URINE PROTEIN 157.1 mg/dL (<12)
== END ==
LOC: OD 10:54
PROVIDERS: ATTEND Internal Medicine Nephrology
DX: I12.9 Hypertensive chronic kidney disease with stage 1 through stage 4 chronic kidney disease, or unspecified chronic kidney disease (principal); N18.4 Chronic kidney disease, stage 4 (severe); E11.22 Type 2 diabetes mellitus with diabetic chronic kidney disease; R80.9 Proteinuria, unspecified
CPT/HCPCS: 36415; 80048; 80158; 82040; 82570; 84156

== ENCOUNTER → 2019-10-02 | Outpatient (CLI) | payer MEDICARE ==
[2019-10-02 12:38] LABS: ABSOLUTE EOSINOPHILS # (AUTO) 0.1 10^3/uL (0.0-0.6); ABSOLUTE LYMPHOCYTES (AUTO) 1.4 10^3/uL (0.5-4.7); ABSOLUTE MONOCYTES (AUTO) 0.7 10^3/uL (0.1-1.4); ABSOLUTE NEUT (AUTO) 3.5 10^3/uL (1.7-8.2); BASOPHILS % (AUTO) 0.9 % (0-2); EOSINOPHILS % (AUTO) 1.7 % (0-6); HEMATOCRIT 34.8 % (36.0-47.0); HEMOGLOBIN 11.8 g/dL (12.0-15.5); LYMPHOCYTES % (AUTO) 24.9 % (13-45); MEAN CORPUSCULAR HEMOGLOBIN 28.6 pg (27.0-33.4); MEAN CORPUSCULAR HGB CONC 33.9 g/dL (32.0-36.0); MEAN CORPUSCULAR VOLUME 85 fl (80-97); MONOCYTES % (AUTO) 11.5 % (3-13); PLATELET COUNT 209 10^3/uL (150-450); RED BLOOD COUNT 4.12 10^6/uL (3.72-5.28); RED CELL DISTRIBUTION WIDTH 14.3 % (11.5-14.0); TOTAL CELLS COUNTED % (AUTO) 100 %; WHITE BLOOD COUNT 5.7 10^3/uL (4.0-10.5)
[2019-10-02 12:58] LABS: ALBUMIN 4.3 g/dL (3.5-5.0); ANION GAP 12 (5-19); BLOOD UREA NITROGEN 22 mg/dL (7-20); CALCIUM 9.6 mg/dL (8.4-10.2); CARBON DIOXIDE 21 mmol/L (22-30); CHLORIDE 106 mmol/L (98-107); GLUCOSE 155 mg/dL (75-110); POTASSIUM 4.1 mmol/L (3.6-5.0)
[2019-10-02 13:14] LABS: APPEARANCE,URINE SLIGHTLY-CLOUDY; BILIRUBIN,URINE NEGATIVE (NEGATIVE); COLOR,URINE YELLOW; GLUCOSE, URINE 50 mg/dL (NEGATIVE); KETONES,URINE NEGATIVE (NEGATIVE); LEUKOCYTE ESTERASE,URINE NEGATIVE (NEGATIVE); NITRITE,URINE NEGATIVE (NEGATIVE); PROTEIN,URINE >=500 mg/dL (NEGATIVE); UROBILINOGEN,URINE NEGATIVE mg/dL (<2.0)
[2019-10-02 13:41] LABS: UR PRO/CREAT RATIO RESULT 8.2 mg/mg (0.0-0.2); URINE PROTEIN 464.7 mg/dL (<12)
== END ==
LOC: OD 12:09
PROVIDERS: ATTEND Internal Medicine Nephrology
DX: E11.22 Type 2 diabetes mellitus with diabetic chronic kidney disease (principal); I12.9 Hypertensive chronic kidney disease with stage 1 through stage 4 chronic kidney disease, or unspecified chronic kidney disease; N18.3 Chronic kidney disease, stage 3 (moderate); R80.9 Proteinuria, unspecified
CPT/HCPCS: 36415; 80069; 80158; 81001; 82306; 82570; 83036; 83970; 84156; 85025

== ENCOUNTER → 2019-11-05 | Outpatient (CLI) | payer MEDICARE ==
[2019-11-05 12:53] LABS: ABSOLUTE BASOPHILS # (AUTO) 0.1 10^3/uL (0.0-0.2); ABSOLUTE EOSINOPHILS # (AUTO) 0.1 10^3/uL (0.0-0.6); ABSOLUTE LYMPHOCYTES (AUTO) 1.3 10^3/uL (0.5-4.7); ABSOLUTE MONOCYTES (AUTO) 0.7 10^3/uL (0.1-1.4); ABSOLUTE NEUT (AUTO) 4.9 10^3/uL (1.7-8.2); BASOPHILS % (AUTO) 0.9 % (0-2); EOSINOPHILS % (AUTO) 0.9 % (0-6); HEMATOCRIT 30.5 % (36.0-47.0); HEMOGLOBIN 10.4 g/dL (12.0-15.5); LYMPHOCYTES % (AUTO) 18.1 % (13-45); MEAN CORPUSCULAR HEMOGLOBIN 29.3 pg (27.0-33.4); MEAN CORPUSCULAR HGB CONC 34.2 g/dL (32.0-36.0); MEAN CORPUSCULAR VOLUME 86 fl (80-97); MONOCYTES % (AUTO) 10.5 % (3-13); PLATELET COUNT 228 10^3/uL (150-450); RED BLOOD COUNT 3.56 10^6/uL (3.72-5.28); RED CELL DISTRIBUTION WIDTH 14.4 % (11.5-14.0); SEGMENTED NEUTROPHILS % (AUTO) 69.6 % (42-78); TOTAL CELLS COUNTED % (AUTO) 100 %; WHITE BLOOD COUNT 7.1 10^3/uL (4.0-10.5)
[2019-11-05 12:57] LABS: APPEARANCE,URINE SLIGHTLY-CLOUDY; BILIRUBIN,URINE NEGATIVE (NEGATIVE); COLOR,URINE YELLOW; GLUCOSE, URINE 50 mg/dL (NEGATIVE); KETONES,URINE NEGATIVE (NEGATIVE); LEUKOCYTE ESTERASE,URINE TRACE (NEGATIVE); NITRITE,URINE NEGATIVE (NEGATIVE); PROTEIN,URINE >=500 mg/dL (NEGATIVE); URINE SPECIFIC GRAVITY 1.011; UROBILINOGEN,URINE NEGATIVE mg/dL (<2.0)
[2019-11-05 13:13] LABS: ALBUMIN 3.7 g/dL (3.5-5.0); ALKALINE PHOSPHATASE 142 U/L (38-126); ANION GAP 10 (5-19); ASPARTATE AMINO TRANSFERASE 16 U/L (14-36); BILIRUBIN,DIRECT 0.2 mg/dL (0.0-0.4); BILIRUBIN,TOTAL 0.6 mg/dL (0.2-1.3); BLOOD UREA NITROGEN 24 mg/dL (7-20); CALCIUM 8.7 mg/dL (8.4-10.2); CARBON DIOXIDE 22 mmol/L (22-30); CHLORIDE 108 mmol/L (98-107); GLUCOSE 209 mg/dL (75-110); POTASSIUM 4.5 mmol/L (3.6-5.0); TOTAL PROTEIN 6.8 g/dL (6.3-8.2)
== END ==
LOC: OD 12:08
PROVIDERS: ATTEND Internal Medicine Nephrology
DX: N39.0 Urinary tract infection, site not specified (principal); N18.3 Chronic kidney disease, stage 3 (moderate); Z94.0 Kidney transplant status
CPT/HCPCS: 36415; 80053; 81001; 85025; 87086

== ENCOUNTER → 2020-01-13 | Outpatient (CLI) | payer MEDICARE ==
[2020-01-13 13:16] LABS: ABSOLUTE EOSINOPHILS # (AUTO) 0.1 10^3/uL (0.0-0.6); ABSOLUTE LYMPHOCYTES (AUTO) 1.1 10^3/uL (0.5-4.7); ABSOLUTE MONOCYTES (AUTO) 0.6 10^3/uL (0.1-1.4); ABSOLUTE NEUT (AUTO) 3.2 10^3/uL (1.7-8.2); BASOPHILS % (AUTO) 0.4 % (0-2); EOSINOPHILS % (AUTO) 1.4 % (0-6); HEMATOCRIT 27.4 % (36.0-47.0); HEMOGLOBIN 9.2 g/dL (12.0-15.5); MEAN CORPUSCULAR HEMOGLOBIN 28.6 pg (27.0-33.4); MEAN CORPUSCULAR HGB CONC 33.8 g/dL (32.0-36.0); MEAN CORPUSCULAR VOLUME 85 fl (80-97); MONOCYTES % (AUTO) 12.7 % (3-13); PLATELET COUNT 215 10^3/uL (150-450); RED BLOOD COUNT 3.24 10^6/uL (3.72-5.28); RED CELL DISTRIBUTION WIDTH 15.5 % (11.5-14.0); SEGMENTED NEUTROPHILS % (AUTO) 63.5 % (42-78); TOTAL CELLS COUNTED % (AUTO) 100 %
[2020-01-13 13:37] LABS: ANION GAP 10 (5-19); BLOOD UREA NITROGEN 32 mg/dL (7-20); CALCIUM 9.2 mg/dL (8.4-10.2); CARBON DIOXIDE 24 mmol/L (22-30); CHLORIDE 105 mmol/L (98-107); GLUCOSE 154 mg/dL (75-110); POTASSIUM 4.6 mmol/L (3.6-5.0)
[2020-01-13 13:41] LABS: URINE CREATININE 44.4 mg/dL (15-278)
[2020-01-13 13:49] LABS: UR PRO/CREAT RATIO RESULT 6.6 mg/mg (0.0-0.2); URINE PROTEIN 294.5 mg/dL (<12)
== END ==
LOC: OD 12:16
PROVIDERS: ATTEND Internal Medicine Nephrology
DX: R80.9 Proteinuria, unspecified (principal); E11.22 Type 2 diabetes mellitus with diabetic chronic kidney disease; N18.3 Chronic kidney disease, stage 3 (moderate); Z94.0 Kidney transplant status
CPT/HCPCS: 36415; 80048; 80158; 82570; 84156; 85025

== ENCOUNTER → 2020-01-28 | Outpatient (CLI) | payer MEDICARE ==
[2020-01-28 10:40] LABS: ANION GAP 11 (5-19); BLOOD UREA NITROGEN 31 mg/dL (7-20); CALCIUM 9.6 mg/dL (8.4-10.2); CARBON DIOXIDE 21 mmol/L (22-30); CHLORIDE 108 mmol/L (98-107); GLUCOSE 168 mg/dL (75-110)
== END ==
LOC: OD 09:42
PROVIDERS: ATTEND Internal Medicine Nephrology
DX: N18.3 Chronic kidney disease, stage 3 (moderate) (principal)
CPT/HCPCS: 36415; 80048

== ENCOUNTER 2020-02-02 10:56 | Outpatient (CLI) | payer MEDICARE ==
[~2020-02-02 10:56] MED LIST: FERUMOXYTOL (NON-ESRD) 510 MG/NS 100 ML IV PRN; NORMAL SALINE 250 ML IV PRN
[2020-02-02 11:44] VITALS: BP 141/55
== END 2020-02-02 13:10 | disposition home or self-care (01) ==
LOC: II 10:56 → 5TH 11:11 → II 13:10
PROVIDERS: ATTEND Internal Medicine
DX: D50.9 Iron deficiency anemia, unspecified (principal); N18.3 Chronic kidney disease, stage 3 (moderate)
CPT/HCPCS: 96365; Q0138; J7050

== ENCOUNTER 2020-02-09 10:29 | Outpatient (CLI) | payer MEDICARE ==
[2020-02-09 10:51] VITALS: BP 125/46
== END 2020-02-09 11:56 | disposition home or self-care (01) ==
LOC: II 10:29 → 5TH 10:36 → II 11:56
PROVIDERS: ATTEND Internal Medicine
DX: D50.9 Iron deficiency anemia, unspecified (principal); N18.3 Chronic kidney disease, stage 3 (moderate)
CPT/HCPCS: 96365; Q0138; J7050

== ENCOUNTER → 2020-03-03 | Outpatient (CLI) | payer MEDICARE ==
[2020-03-03 12:58] LABS: ABSOLUTE EOSINOPHILS # (AUTO) 0.1 10^3/uL (0.0-0.6); ABSOLUTE LYMPHOCYTES (AUTO) 0.9 10^3/uL (0.5-4.7); ABSOLUTE MONOCYTES (AUTO) 0.5 10^3/uL (0.1-1.4); ABSOLUTE NEUT (AUTO) 2.5 10^3/uL (1.7-8.2); BASOPHILS % (AUTO) 1.1 % (0-2); HEMATOCRIT 28.1 % (36.0-47.0); HEMOGLOBIN 9.4 g/dL (12.0-15.5); LYMPHOCYTES % (AUTO) 22.1 % (13-45); MEAN CORPUSCULAR HGB CONC 33.6 g/dL (32.0-36.0); MEAN CORPUSCULAR VOLUME 86 fl (80-97); MONOCYTES % (AUTO) 11.9 % (3-13); PLATELET COUNT 179 10^3/uL (150-450); RED BLOOD COUNT 3.26 10^6/uL (3.72-5.28); RED CELL DISTRIBUTION WIDTH 17.6 % (11.5-14.0); SEGMENTED NEUTROPHILS % (AUTO) 62.9 % (42-78); TOTAL CELLS COUNTED % (AUTO) 100 %
[2020-03-03 13:15] LABS: ALBUMIN 3.9 g/dL (3.5-5.0); ANION GAP 10 (5-19); BLOOD UREA NITROGEN 25 mg/dL (7-20); CALCIUM 9.3 mg/dL (8.4-10.2); CARBON DIOXIDE 21 mmol/L (22-30); CHLORIDE 109 mmol/L (98-107); GLUCOSE 126 mg/dL (75-110); PHOSPHORUS 4.1 mg/dL (2.5-4.5); POTASSIUM 4.1 mmol/L (3.6-5.0)
[2020-03-03 13:30] LABS: APPEARANCE,URINE SLIGHTLY-CLOUDY; BILIRUBIN,URINE NEGATIVE (NEGATIVE); COLOR,URINE YELLOW; GLUCOSE, URINE NEGATIVE (NEGATIVE); KETONES,URINE NEGATIVE (NEGATIVE); LEUKOCYTE ESTERASE,URINE TRACE (NEGATIVE); NITRITE,URINE NEGATIVE (NEGATIVE); PROTEIN,URINE >=500 mg/dL (NEGATIVE); URINE SPECIFIC GRAVITY 1.013; UROBILINOGEN,URINE NEGATIVE mg/dL (<2.0)
[2020-03-03 22:34] LABS: URINE CREATININE 109.1 mg/dL (15-278)
[2020-03-03 23:52] LABS: UR PRO/CREAT RATIO RESULT 4.8 mg/mg (0.0-0.2); URINE PROTEIN 523.5 mg/dL (<12)
[2020-03-04 12:56] LABS: IRON(TIBC) 22.5 ug/dL (37-170)
== END ==
LOC: OD 12:26
PROVIDERS: ATTEND Internal Medicine Nephrology
DX: N18.4 Chronic kidney disease, stage 4 (severe) (principal); D63.1 Anemia in chronic kidney disease
CPT/HCPCS: 36415; 80069; 81001; 82306; 82570; 82728; 83540; 83550; 83970; 84156; 85025

== ENCOUNTER 2020-03-24 10:50 | Outpatient (CLI) | payer MEDICARE ==
[~2020-03-24 10:50] MED LIST changes: +FERRIC CARBOXYMALTOSE 750 MG in NORMAL SALINE 100 ML IV PRN; -FERUMOXYTOL (NON-ESRD) 510 MG/NS 100 ML IV PRN; -NORMAL SALINE 250 ML IV PRN
[2020-03-24 11:09] VITALS: BP 144/52
== END 2020-03-24 12:00 | disposition home or self-care (01) ==
LOC: II 10:50 → 5TH 10:51 → II 12:00
PROVIDERS: ATTEND Internal Medicine Nephrology
DX: D50.8 Other iron deficiency anemias (principal); N18.3 Chronic kidney disease, stage 3 (moderate)
CPT/HCPCS: 96365; J7050; J1439

== ENCOUNTER 2020-03-31 11:00 | Outpatient (CLI) | payer MEDICARE, MEDICAID ==
[2020-03-31 11:06] VITALS: BP 148/52
== END 2020-03-31 12:00 | disposition home or self-care (01) ==
LOC: II 11:00 → 5TH 11:01 → II 12:00
PROVIDERS: ATTEND Internal Medicine Nephrology
DX: D50.8 Other iron deficiency anemias (principal); N18.3 Chronic kidney disease, stage 3 (moderate)
CPT/HCPCS: 96365; J7050; J1439

== ENCOUNTER → 2020-04-18 | Outpatient (CLI) | payer MEDICARE, MEDICAID ==
[2020-04-18 14:15] LABS: ABSOLUTE BASOPHILS # (AUTO) 0.1 10^3/uL (0.0-0.2); ABSOLUTE EOSINOPHILS # (AUTO) 0.1 10^3/uL (0.0-0.6); ABSOLUTE LYMPHOCYTES (AUTO) 1.2 10^3/uL (0.5-4.7); ABSOLUTE MONOCYTES (AUTO) 0.6 10^3/uL (0.1-1.4); ABSOLUTE NEUT (AUTO) 3.4 10^3/uL (1.7-8.2); EOSINOPHILS % (AUTO) 1.3 % (0-6); HEMATOCRIT 34.7 % (36.0-47.0); HEMOGLOBIN 11.9 g/dL (12.0-15.5); LYMPHOCYTES % (AUTO) 23.2 % (13-45); MEAN CORPUSCULAR HGB CONC 34.3 g/dL (32.0-36.0); MEAN CORPUSCULAR VOLUME 88 fl (80-97); MONOCYTES % (AUTO) 11.7 % (3-13); PLATELET COUNT 146 10^3/uL (150-450); RED BLOOD COUNT 3.96 10^6/uL (3.72-5.28); RED CELL DISTRIBUTION WIDTH 16.7 % (11.5-14.0); SEGMENTED NEUTROPHILS % (AUTO) 62.8 % (42-78); TOTAL CELLS COUNTED % (AUTO) 100 %; WHITE BLOOD COUNT 5.3 10^3/uL (4.0-10.5)
[2020-04-18 14:38] LABS: ANION GAP 11 (5-19); BLOOD UREA NITROGEN 46 mg/dL (7-20); CALCIUM 9.2 mg/dL (8.4-10.2); CARBON DIOXIDE 22 mmol/L (22-30); CHLORIDE 107 mmol/L (98-107); GLUCOSE 166 mg/dL (75-110); IRON(TIBC) 112.3 ug/dL (37-170); POTASSIUM 4.8 mmol/L (3.6-5.0)
== END ==
LOC: OD 13:24
PROVIDERS: ATTEND Internal Medicine Nephrology
DX: N18.4 Chronic kidney disease, stage 4 (severe) (principal); D63.1 Anemia in chronic kidney disease; R80.9 Proteinuria, unspecified; D84.9 Immunodeficiency, unspecified
CPT/HCPCS: 36415; 80048; 80158; 82607; 82728; 83540; 83550; 85025

== ENCOUNTER 2020-05-13 13:18 | Emergency (ER) | payer MEDICARE, MEDICAID ==
--- NOTE | 2020-05-13 14:15 | ER Document Report ---
ED Medical Screen (RME) - General Chief Complaint: Blood Pressure Problem Stated Complaint: BLOOD PRESSURE ISSUE Time Seen by Provider: 05/13/20 13:46 Primary Care Provider: NANCY ZAMORA MD [Primary Care Provider] - Follow up as needed Mode of Arrival: Ambulatory Information source: Patient Notes: 54-year-old female with complicated medical history presenting with concerns for elevated blood pressure. Patient reports that her doctor has been adjusting her blood pressure medications however her blood pressure has been in the 160s to 180s systolic. She states that she has had a headache for several days with this and now has an unsteady gait that has been going on for the last 48 hours. Patient reports history of renal transplant, hypertension, multiple MIs with stent placement. Patient is alert, oriented, no focal neurological deficits noted. I have greeted and performed a rapid initial assessment of this patient. A comprehensive ED assessment and evaluation of the patient, analysis of test results and completion of the medical decision making process will be conducted by additional ED providers. I have specifically instructed the patient or family members with the patient to immediately return to any nursing staff should anything change in the patient's condition or with their chief complaint. TRAVEL OUTSIDE OF THE [place] IN LAST 30 DAYS: No - Related Data Allergies/Adverse Reactions: clopidogrel [From Plavix] Allergy (Verified 04/06/18 05:27) ondansetron [From Zofran] Allergy (Verified 04/06/18 05:27) Penicillins Allergy (Verified 04/06/18 05:27) Past Medical History - Past Medical History Cardiac Medical History: Reports: Hx Heart Attack, Hx Hypercholesterolemia, Hx Hypertension Pulmonary Medical History: Reports: Hx COPD Endocrine Medical History: Reports: Hx Diabetes Mellitus Type 2 Renal/ Medical History: Reports: Hx End Stage Renal Disease. 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, Hx Vascular Surgery - HD fistula LUE, kidney transplant - Immunizations Immunizations up to date: Yes Hx Diphtheria, Pertussis, Tetanus Vaccination: Yes Physical Exam - Vital signs Vitals: Temp Pulse Resp BP Pulse Ox 98.3 F 70 16 152/58 H 99 05/13/20 13:40 05/13/20 13:40 05/13/20 13:40 05/13/20 13:40 05/13/20 13:40 Course - Vital Signs Vital signs: Temp Pulse Resp BP Pulse Ox 98.3 F 70 16 163/68 H 99 05/13/20 13:40 05/13/20 13:40 05/13/20 13:40 05/13/20 14:09 05/13/20 13:40 Doctor's Discharge - Discharge Referrals: NANCY ZAMORA MD [Primary Care Provider] - Follow up as needed
[2020-05-13 14:44] LABS: ABSOLUTE LYMPHOCYTES (AUTO) 1.2 10^3/uL (0.5-4.7); ABSOLUTE MONOCYTES (AUTO) 0.7 10^3/uL (0.1-1.4); ABSOLUTE NEUT (AUTO) 3.7 10^3/uL (1.7-8.2); BASOPHILS % (AUTO) 0.4 % (0-2); EOSINOPHILS % (AUTO) 0.8 % (0-6); HEMATOCRIT 33.7 % (36.0-47.0); HEMOGLOBIN 11.3 g/dL (12.0-15.5); LYMPHOCYTES % (AUTO) 20.9 % (13-45); MEAN CORPUSCULAR HEMOGLOBIN 29.9 pg (27.0-33.4); MEAN CORPUSCULAR HGB CONC 33.6 g/dL (32.0-36.0); MEAN CORPUSCULAR VOLUME 89 fl (80-97); MONOCYTES % (AUTO) 11.6 % (3-13); PLATELET COUNT 153 10^3/uL (150-450); RED BLOOD COUNT 3.79 10^6/uL (3.72-5.28); RED CELL DISTRIBUTION WIDTH 15.7 % (11.5-14.0); SEGMENTED NEUTROPHILS % (AUTO) 66.3 % (42-78); TOTAL CELLS COUNTED % (AUTO) 100 %; WHITE BLOOD COUNT 5.6 10^3/uL (4.0-10.5)
[2020-05-13 14:47] LABS: APPEARANCE,URINE SLIGHTLY-CLOUDY; BILIRUBIN,URINE NEGATIVE (NEGATIVE); COLOR,URINE YELLOW; GLUCOSE, URINE NEGATIVE (NEGATIVE); KETONES,URINE NEGATIVE (NEGATIVE); LEUKOCYTE ESTERASE,URINE TRACE (NEGATIVE); NITRITE,URINE NEGATIVE (NEGATIVE); PROTEIN,URINE >=500 mg/dL (NEGATIVE); URINE SPECIFIC GRAVITY 1.009; UROBILINOGEN,URINE NEGATIVE mg/dL (<2.0)
--- NOTE | 2020-05-13 14:57 | RADIOLOGY REPORT (SQ) ---
EXAM DESCRIPTION: CT HEAD WITHOUT IMAGES COMPLETED DATE/TIME: 05/13/2020 2:37 pm REASON FOR STUDY: headache, elevated BP COMPARISON: None. TECHNIQUE: Axial images acquired through the brain without intravenous contrast. Images reviewed wi th bone, brain and subdural windows. Additional sagittal and coronal reconstructions were generated. Images stored on PACS. All CT scanners at this facility use dose modulation, iterative reconstruction, and/or weight based d osing when appropriate to reduce radiation dose to as low as reasonably achievable (ALARA). [facility]: Dose Right [facility]: CareDose [facility]: Dose Right [facility]: Teradose 4D [facility]: [employer] RADIATION DOSE: CT Rad equipment meets quality standard of care and radiation dose reduction techniq ues were employed. CTDIvol: 53.2 mGy. DLP: 991 mGy-cm. mGy. LIMITATIONS: None. FINDINGS: VENTRICLES: Normal size and contour. CEREBRUM: No masses. No hemorrhage. No midline shift. No evidence for acute infarction. Normal gra y/white matter differentiation. No areas of low density in the white matter. CEREBELLUM: No masses. No hemorrhage. No alteration of density. No evidence for acute infarction. EXTRAAXIAL SPACES: No fluid collections. No masses. ORBITS AND GLOBE: No intra- or extraconal masses. Normal contour of globe without masses. CALVARIUM: No fracture. PARANASAL SINUSES: No fluid or mucosal thickening. SOFT TISSUES: No mass or hematoma. OTHER: No other significant finding. IMPRESSION: NORMAL BRAIN CT WITHOUT CONTRAST. EVIDENCE OF ACUTE STROKE: NO. COMMENT: Quality ID # [id number]: Final reports with documentation of one or more dose reduction techniques (e.g., Automated exposure control, adjustment of the mA and/or kV according to patient size, use of iterative reconstruction technique) TECHNICAL DOCUMENTATION: JOB ID: [id number] 2010 [employer]- All Rights Reserved Reading location - IP/workstation name: [email or web address]
[2020-05-13 15:07] LABS: ALBUMIN 4.2 g/dL (3.5-5.0); ALKALINE PHOSPHATASE 129 U/L (38-126); ANION GAP 12 (5-19); ASPARTATE AMINO TRANSFERASE 17 U/L (14-36); BILIRUBIN,DIRECT 0.9 mg/dL (0.0-0.4); BILIRUBIN,TOTAL 1.2 mg/dL (0.2-1.3); BLOOD UREA NITROGEN 56 mg/dL (7-20); CALCIUM 8.7 mg/dL (8.4-10.2); CARBON DIOXIDE 20 mmol/L (22-30); CHLORIDE 105 mmol/L (98-107); GLUCOSE 119 mg/dL (75-110); POTASSIUM 5.9 mmol/L (3.6-5.0); TOTAL PROTEIN 7.1 g/dL (6.3-8.2)
[2020-05-13 18:33] VITALS: BP 151/52
--- NOTE | 2020-05-13 20:31 | ER Document Report ---
ED Blood Pressure Problem - General Chief Complaint: Blood Pressure Problem Stated Complaint: BLOOD PRESSURE ISSUE Time Seen by Provider: 05/13/20 13:46 Primary Care Provider: NANCY ZAMORA MD [ACTIVE STAFF] - 05/16/20 MARIZA KATZ PA-C [Primary Care Provider] - Follow up in 3-5 days Mode of Arrival: Ambulatory Notes: Patient is a 54-year-old female presents emergency department with a chief complaint of a headache. Patient states 3 general overall headache. Patient states that her blood pressure also has been higher than normal. Patient states that her blood pressure is normally in the 120s to 130s and it has been in the 150s to 160s. Patient's medications were changed recently. Patient stopped Lasix a week ago. She was also taken off her amlodipine. TRAVEL OUTSIDE OF THE [place] IN LAST 30 DAYS: No - Related Data Allergies/Adverse Reactions: clopidogrel [From Plavix] Allergy (Verified 04/06/18 05:27) ondansetron [From Zofran] Allergy (Verified 04/06/18 05:27) Penicillins Allergy (Verified 04/06/18 05:27) Past Medical History - General Information source: Patient - Social History Smoking Status: Unknown if Ever Smoked Family History: Reviewed & Not Pertinent - Past Medical History Cardiac Medical History: Reports: Hx Heart Attack, Hx Hypercholesterolemia, Hx Hypertension Pulmonary Medical History: Reports: Hx COPD Endocrine Medical History: Reports: Hx Diabetes Mellitus Type 2 Renal/ Medical History: Reports: Hx End Stage Renal Disease. 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, Hx Vascular Surgery - HD fistula LUE, kidney transplant - Immunizations Immunizations up to date: Yes Hx Diphtheria, Pertussis, Tetanus Vaccination: Yes Review of Systems - Review of Systems Notes: REVIEW OF SYSTEMS: CONSTITUTIONAL : Denies recent illness. Denies recent unintentional weight loss. Denies fever, chills, or sweats. EENT: Denies eye, ear, throat, or mouth pain, discharge, or symptoms. Denies nasal or sinus congestion. CARDIOVASCULAR: Denies chest pain. RESPIRATORY: Denies shortness of breath, cough, congestion, difficulty breathing, or wheezing. GASTROINTESTINAL: Denies nausea, vomiting, and diarrhea. Denies abdominal pain. Denies constipation. GENITOURINARY: Denies difficulty urinating, burning, blood in urine, urgency or frequency. MUSCULOSKELETAL: Denies neck and back pain. Denies joint pain or swelling. SKIN: Denies rash, itchiness, or lesions HEMATOLOGIC : Denies easy bruising or bleeding. LYMPHATIC: Denies swollen, painful, enlarged glands. NEUROLOGICAL: See HPI. PSYCHIATRIC: Denies stress, anxiety, alteration in sleep patterns, or depression. All other systems reviewed and negative. Physical Exam - Vital signs Vitals: Temp Pulse Resp BP Pulse Ox 98.3 F 70 16 152/58 H 99 05/13/20 13:40 05/13/20 13:40 05/13/20 13:40 05/13/20 13:40 05/13/20 13:40 - Notes Notes: PHYSICAL EXAMINATION: GENERAL: Appears well, healthy, well-nourished, no acute distress. HEAD: Normocephalic, atraumatic. EYES: PERRL, conjunctiva normal, all extraocular movements intact, sclera nonicteric ENT: Moist mucous membranes. NECK: Supple, no noticeable swelling, redness, rash. Normal range of motion. LUNGS: Equal breath sounds bilaterally and clear to auscultation. No wheezes rales or rhonchi. CARDIOVASCULAR: S1-S2, regular rate, regular rhythm. Radial pulses 2+, normal. ABDOMEN: Normoactive bowel sounds. Soft, nontender, no guarding, no rebound tenderness, and no masses palpated. EXTREMITIES: Normal strength and range of motion, no pitting or edema. No cyanosis. NEUROLOGICAL: Moves all extremities upon command. Strength 5/5 in all extremities. PSYCH: Normal mood, normal affect. SKIN: Warm, dry. No rash, lesions, ulcerations noted. Normal skin turgor. Course - Re-evaluation Re-evalutation: 05/13/20 20:59 I [address] to call Dr. Zamora, the patient's software programmer. She is not on-call tonight. She was only general operations agent until 1700 tonight. I then spoke with Dr. anaya, who recommends starting patient back on Lasix and giving her dose of 20 mg IV. He is also recommended giving her clonidine.Hematology is unremarkable. Potassium is 5.9 and creatinine is 3.38, which is not a significant change from previous labs from about a month ago. Patient states that she stopped taking her Lasix a week ago. Suspect this is why her potassium is higher. 05/13/20 21:30 Patient states that she wants to leave. States that she does not wish to take the medications that I ordered. I did not want her to leave and I want her to make sure that she got her medications and see if it helps with her blood pressure and with her headache. Advised the patient that I prefer she stay. Patient is able to make her own decisions. Discussed the risks of leaving. - Vital Signs Vital signs: Temp Pulse Resp BP Pulse Ox 98.3 F 55 L 17 151/52 H 97 05/13/20 18:32 05/13/20 18:32 05/13/20 18:32 05/13/20 18:32 05/13/20 18:32 - Laboratory Result Diagrams: 05/13/20 14:20 05/13/20 14:20 Laboratory results interpreted by me: 05/13/20 05/13/20 05/13/20 14:20 14:20 14:20 Hgb 11.3 L Hct 33.7 L RDW 15.7 H Potassium 5.9 H Carbon Dioxide 20 L BUN 56 H Creatinine 3.38 H Est GFR ( Amer) 17 L Est GFR (MDRD) Non-Af 14 L Glucose 119 H Direct Bilirubin 0.9 H Alkaline Phosphatase 129 H Urine Protein >=500 H Ur Leukocyte Esterase TRACE H Discharge - Discharge Clinical Impression: Hyperkalemia High blood pressure Qualifiers: Hypertension type: renovascular hypertension Qualified Code(s): I15.0 - Renovascular hypertension Headache Qualifiers: Headache type: unspecified Headache chronicity pattern: unspecified pattern Intractability: not intractable Qualified Code(s): R51 - Headache Condition: Stable Disposition: HOME, SELF-CARE Additional Instructions: You were seen today in the emergency department for high blood pressure readings and a headache. Please take 1 dose of your Lasix tonight. Tomorrow around noon, you can take another dose of Lasix. Your potassium was high here in the emergency department. This is why you are being placed back on Lasix. I recommend that you stay, but you are choosing to leave. You could take Reglan as needed for your headache. Please follow-up with Dr. Zamora on Saturday. Return immediately if your symptoms do not improve. Prescriptions: Metoclopramide HCl [Reglan 10 mg Tablet] 1 - 2 tab PO ASDIR PRN #25 tablet PRN Reason: Referrals: NACNY ZAMORA MD [ACTIVE STAFF] - 05/16/20 MARIZA KATZ PA-C [Primary Care Provider] - Follow up in 3-5 days
[2020-05-13] MEDS ORDERED: CLONIDINE HCL 0.2 MG TABLET PO ONE ×2 (20:46→20:53)
[2020-05-13] MEDS ORDERED: FUROSEMIDE INJ/PF 20 MG/2 ML SDV IV ONE (20:53)
[2020-05-13] MEDS ORDERED: METOCLOPRAMIDE HCL INJ/PF 10 MG/2 ML SDV IV ONE (20:54)
[2020-05-13] MEDS ORDERED: METOCLOPRAMIDE HCL 10 MG TABLET PO ONE (21:30)
== END 2020-05-13 22:25 | disposition home or self-care (01) ==
LOC: ER 13:18
DX: I12.0 Hypertensive chronic kidney disease with stage 5 chronic kidney disease or end stage renal disease (principal); E11.22 Type 2 diabetes mellitus with diabetic chronic kidney disease; N18.6 End stage renal disease; Z94.0 Kidney transplant status; R51 Headache; E87.5 Hyperkalemia; I25.2 Old myocardial infarction; J44.9 Chronic obstructive pulmonary disease, unspecified; Z95.5 Presence of coronary angioplasty implant and graft; Z88.8 Allergy status to other drugs, medicaments and biological substances; Z88.0 Allergy status to penicillin
CPT/HCPCS: 36415; 70450; 80053; 81001; 85025; 87086; 99284

== ENCOUNTER → 2020-05-26 | Outpatient (CLI) | payer MEDICARE, MEDICAID ==
[2020-05-26 13:57] LABS: ANION GAP 13 (5-19); BLOOD UREA NITROGEN 51 mg/dL (7-20); CALCIUM 9.1 mg/dL (8.4-10.2); CARBON DIOXIDE 20 mmol/L (22-30); CHLORIDE 107 mmol/L (98-107); GLUCOSE 191 mg/dL (75-110); POTASSIUM 4.8 mmol/L (3.6-5.0)
== END ==
LOC: OD 12:31
PROVIDERS: ATTEND Internal Medicine Nephrology
DX: N18.30 Chronic kidney disease, stage 3 unspecified (principal)
CPT/HCPCS: 36415; 80048